=== PATIENT | female | born 1965 | race Caucasian/White ===

== ENCOUNTER → 2022-06-19 | Outpatient (CLI) | payer MEDICARE, MEDICAID | LOC: ORTHO 14:34 | PROVIDERS: ATTEND Orthopaedic Surgery | DX: G56.01 Carpal tunnel syndrome, right upper limb (principal) | CPT/HCPCS: 99213 ==

== ENCOUNTER 2022-06-25 05:36 | Outpatient (CLI) | payer MEDICARE, MEDICAID ==
[~2022-06-25] VITALS: Ht 160 cm; Wt 109.9 kg
[2022-06-26] MEDS ORDERED: IPRA4AER IH ×2 (16:39)
[2022-06-26] MEDS ORDERED: ALPR0.5T7 PO ×2 (16:39)
[2022-06-26] MEDS ORDERED: FOLI0.4T6 PO ×2 (16:39)
[2022-06-26] MEDS ORDERED: FLUT15.845 NS ×2 (16:39)
[2022-06-26] MEDS ORDERED: ALB0.5V INH ×2 (16:39)
[2022-06-26] MEDS ORDERED: CETI10TA17 PO ×2 (16:39)
[2022-06-26] MEDS ORDERED: MV-M1TAB20 PO ×2 (16:39)
[2022-06-26] MEDS ORDERED: HYDR-3817 PO ×2 (16:39)
[2022-06-26] MEDS ORDERED: METO-333 PO ×2 (16:39)
[2022-06-26] MEDS ORDERED: LOSA100T57 PO ×2 (16:39)
[2022-06-26] MEDS ORDERED: FLUT1BLS IH ×2 (16:39)
[2022-06-26] MEDS ORDERED: LEVO25CA4 PO ×2 (16:39)
[2022-06-26] MEDS ORDERED: MONT10TA21 PO ×2 (16:39)
[2022-06-26] MEDS ORDERED: LACT1CAP74 PO ×2 (16:39)
[2022-06-26] MEDS ORDERED: GUAI120013 PO ×2 (16:39)
[2022-06-26] MEDS ORDERED: METO50TA15 PO ×2 (16:39)
[2022-06-26] MEDS ORDERED: LAMO100T5 PO ×2 (16:39)
== END 2022-06-26 15:21 | disposition home or self-care (01) ==
LOC: PREOP 05:36
PROVIDERS: ATTEND Orthopaedic Surgery
DX: Z01.818 Encounter for other preprocedural examination (principal)

== ENCOUNTER 2022-07-02 09:24 | Day surgery (SDC) | payer MEDICARE, MEDICAID ==
[~2022-07-02] VITALS: Ht 160 cm; Wt 109.9 kg
[2022-07-02] VITALS (7 sets, daily range): BP systolic 87–159; BP diastolic 49–91
[~2022-07-02 09:24] MED LIST: ALB0.5V INH; ALPR0.5T7 PO; CETI10TA17 PO; FLUT15.845 NS; FLUT1BLS IH; FOLI0.4T6 PO; GUAI120013 PO; HYDR-3817 PO; IPRA4AER IH; LACT1CAP74 PO; LAMO100T5 PO; LEVO25CA4 PO; LOSA100T57 PO; METO-333 PO; METO50TA15 PO; MONT10TA21 PO; MV-M1TAB20 PO
[2022-07-02] MEDS ORDERED: LACTATED RINGERS 1,000 ML IV PRN (09:45)
[2022-07-02] MEDS ORDERED: NS IV 500 ML 500 ML IV ONE (09:45)
[2022-07-02] MEDS ORDERED: ceFAZolin INJECTION 2,000 MG in NS (IVPB) 50 ML IV ONE (09:45)
[2022-07-02] MEDS ORDERED: NEO/POLY/BAC (NEOSPORIN) OINT 15 GM TUBE ONE (10:01)
[2022-07-02] MEDS ORDERED: BUPIVACAINE 0.5% 30 ML (SENSORCAINE) VIAL ONE (10:01)
[2022-07-02] MEDS ORDERED: LIDOCAINE PF 0.5% 50 ML (XYLOCAINE) VIAL ONE (10:06)
[2022-07-02] MEDS ORDERED: fentaNYL INJ 100 MCG/2 ML AMP ONE (10:06)
[2022-07-02] MEDS ORDERED: MIDAZOLAM 2 MG/2 ML (VERSED) VIAL ONE (10:06)
[2022-07-02] MEDS ORDERED: ONDANSETRON 4 MG/2 ML (SDV) Z0FRAN ONE (10:06)
[2022-07-02] MEDS ORDERED: PROPOFOL INJECTION 50 ML IV ONE (10:06)
--- NOTE | 2022-07-02 11:32 | Progress Note-Pre Operative ---
Pre-Operative Progress Note Date of Available H&P: Jun 19, 2022 Date H&P Reviewed: Jul 02, 2022 Time H&P Reviewed: 10:40 History & Physical: H&P Reviewed, Patient Examed, No changes noted Pre-Operative Diagnosis: Right Carpal Tunnel Syndrome TIFFANIE STEPHENS MD Jul 02, 2022 11:32
--- NOTE | 2022-07-02 11:33 | Operative Report - Ortho ---
Operative Report Surgeon (s)/Cereal Miller (s) Surgeon TIFFANIE STEPHENS MD Cereal Miller n/a Pre-Operative Diagnosis Right Carpal Tunnel Syndrome Post-Operative Diagnosis same Operative Report Date of Procedure: Jul 02, 2022 Name of Procedure Performed: Right Carpal Tunnel Release Description & Findings After obtaining informed consent and marking the patient in the preoperative holding area, the patient was administered IV antibiotics. The patient was taken to the operating room and perry block anesthesia was induced. The right upper extremity was prepped and draped in the usual sterile fashion. Surgical timeout was taken. Incision was made just ulnar to the thenar crease. Blunt dissection was carried down to the longitudinal fibers of the palmar fascia; these were divided in line revealing the transverse carpal ligament. Beginning distally and working proximally, carpal tunnel release was performed. Nerve protector was placed and release was completed back to the level of the forearm fascia. Probe was inserted and release was palpably complete. Tourniquet was dropped and hemostasis was achieved. Wound was closed with 4-0 nylon. Wound was dressed with antibiotic ointment, xeroform, 4x4s, cristal, ABD for soft splint, cast padding, and VILMA wrap. Patient tolerated the procedure well and was stable to the recovery room. Anesthesia Type Perry block Estimated Blood Loss minimal Specimen(s) collected/removed None TIFFANIE STEPHENS MD Jul 02, 2022 11:33
[2022-07-02] MEDS ORDERED: ACHYD1T PO ×2 (11:35)
--- NOTE | 2022-07-02 11:39 | Anesthesia-General Post-Op ---
MAC Patient Condition Mental Status/LOC: Same as Preop Cardiovascular: Satisfactory Nausea/Vomiting: Absent Respiratory: Satisfactory Pain: Controlled Complications: Absent Post Op Complications Complications None Follow Up Care/Instructions Patient Instructions None needed. Anesthesiology Discharge Order Discharge Order Patient is doing well, no complaints, stable vital signs, no apparent adverse anesthesia problems. No complications reported per nursing. LIGIA HAAS CRNA Jul 02, 2022 11:39
[2022-07-02] MEDS ORDERED: MEPERIDINE (DEMEROL) INJ 50 MG/ML IVP ONE (11:45)
[2022-07-02] MEDS ORDERED: morphine INJ 10 MG/ML 1ML (SYR OR VIAL) IVP ONE (11:45)
[2022-07-02] MEDS ORDERED: ONDANSETRON 4 MG/2 ML (SDV) Z0FRAN IVP PRN (11:45)
== END 2022-07-02 12:55 | disposition home or self-care (01) ==
LOC: SDC 09:24
PROVIDERS: ATTEND Orthopaedic Surgery
DX: G56.01 Carpal tunnel syndrome, right upper limb (principal); E66.01 Morbid (severe) obesity due to excess calories; F17.210 Nicotine dependence, cigarettes, uncomplicated; Z68.41 Body mass index [BMI] 40.0-44.9, adult
CPT/HCPCS: 87081

== ENCOUNTER → 2022-08-02 | Outpatient (CLI) | payer MEDICARE, MEDICAID ==
[~2022-08-02] MED LIST changes: +ACHYD1T PO
== END ==
LOC: ORTHO 14:20
PROVIDERS: ATTEND Orthopaedic Surgery
DX: Z47.89 Encounter for other orthopedic aftercare (principal); M75.52 Bursitis of left shoulder

== ENCOUNTER → 2022-09-18 | Outpatient (CLI) | payer MEDICARE, MEDICAID | LOC: ORTHO 15:05 | PROVIDERS: ATTEND Orthopaedic Surgery | DX: Z47.89 Encounter for other orthopedic aftercare (principal); M75.52 Bursitis of left shoulder | CPT/HCPCS: 20610 ==